=== PATIENT | male | born 1935 | race Caucasian/White ===

== ENCOUNTER 2020-03-20 03:58 | Inpatient (IN) ==
[2020-03-20] MEDS ORDERED: *HR* FentaNYL (PF) 100 MCG/2 ML VIAL IVP ONE (04:09)
[2020-03-20 04:54] LABS: Basophils % 0.5 %; Eosinophils # 0.2 K/mcL (0.0-0.6); Eosinophils % 1.9 %; Hematocrit 43.2 % (37.5-50.1); Immature Granulocytes % 0.5 % (0-4); Lymphocytes # 1.3 K/mcL (0.6-4.6); Lymphocytes % 15.1 %; Mean Corpuscular HGB Conc 32.4 g/dL (31.6-35.5); Mean Corpuscular Hemoglobin 29.4 pg (28.0-33.3); Mean Corpuscular Volume 90.6 fL (83.0-100.0); Mean Platelet Volume 9.1 fL (9.4-12.4); Monocytes # 0.5 K/mcL (0.0-1.3); Monocytes % 6.5 %; Neutrophils # 6.3 K/mcL (1.6-8.9); Platelet Count 187 K/mcL (140-400); Red Blood Count 4.77 M/mcL (4.19-5.50); Red Cell Distribution Width 13.5 % (11.5-14.5); Segmented Neutrophils % 75.5 %; White Blood Count 8.4 K/mcL (4.3-11.1)
[2020-03-20 05:09] LABS: BUN/Creatinine Ratio 27 (6-26); Blood Urea Nitrogen 26 mg/dL (8-23); Calcium 9.4 mg/dL (8.6-10.3); Carbon Dioxide 28 mEq/L (23-29); Chloride 103 mEq/L (98-107); Creatine Kinase 199 Units/L (30-223); Glucose 128 mg/dL (70-105); Osmolality,Calculated 294 (280-300); Potassium 3.9 mEq/L (3.5-5.1); Sodium 139 mEq/L (136-145); eGFR For African Americans > 60 (> 60); eGFR For Non-African Americans > 60 (> 60)
[2020-03-20] MEDS ORDERED: Morphine Sulfate 2 MG/ML SYRINGE IVP ONE ×3 (05:30→09:15)
[2020-03-20] MEDS ORDERED: Acetaminophen 325 MG TABLET PO PRN (05:51)
[2020-03-20] MEDS ORDERED: Naloxone 0.4 MG/ML INJ IVP PRN (05:51)
[2020-03-20] MEDS ORDERED: 0.9 % Sodium Chloride 1,000 ML IVC SCH (06:00)
[2020-03-20 06:01] LABS: INR 1.1; Prothrombin Time 12.2 Seconds (9.4-12.1)
[2020-03-20] MEDS: Artificial Tears SOLN 15 ML BOTTLE BOTH EYES SCH ×3 (13:00→20:52)
[2020-03-20] MEDS: amLODIPine 5 MG TABLET PO SCH (13:00)
[2020-03-20] MEDS: risperiDONE 0.25 MG TABLET PO SCH (18:11)
[2020-03-20] MEDS: Mirtazapine 15 MG TABLET PO SCH (20:52)
[2020-03-20] MEDS ORDERED: Acetaminophen IV 1,000 MG/100 ML BAG IVPB ONE (22:51)
[2020-03-21] MEDS: Artificial Tears SOLN 15 ML BOTTLE BOTH EYES SCH ×4 (07:53→21:58)
[2020-03-21] MEDS: amLODIPine 5 MG TABLET PO SCH (13:11)
[2020-03-21] MEDS: risperiDONE 0.25 MG TABLET PO SCH ×2 (13:11→16:38)
[2020-03-21] MEDS: Mirtazapine 15 MG TABLET PO SCH (21:58)
[2020-03-22] MEDS ORDERED: *HR* Etomidate 20 MG/10 ML AMPUL IVP ONE (02:34)
[2020-03-22] MEDS ORDERED: *HR* Midazolam HCl 5 MG/5 ML VIAL IVP ONE (02:34)
[2020-03-22 05:34] LABS: ABG Base Excess 0 mEq/L (-2 to 3); ABG HCO3 29 mEq/L (21-27); ABG Oxygen Saturation 84 % (95-98); ABG PCO2 63 mmHg (35-45); ABG PH 7.27 pH Units (7.32-7.45); ABG PO2 57 mmHg (85-104); ABG TCO2 31 mEq/L (20-26)
[2020-03-22] MEDS ORDERED: 0.9 % Sodium Chloride 1,000 ML ONE (05:46)
[2020-03-22 06:08] LABS: Basophils # 0.1 K/mcL (0.0-0.2); Basophils % 0.4 %; Eosinophils # 0.1 K/mcL (0.0-0.6); Eosinophils % 0.6 %; Hematocrit 47.4 % (37.5-50.1); Hemoglobin 15.1 g/dL (12.9-16.9); Immature Granulocytes % 0.5 % (0-4); Lymphocytes # 1.1 K/mcL (0.6-4.6); Lymphocytes % 8.5 %; Mean Corpuscular HGB Conc 31.9 g/dL (31.6-35.5); Mean Corpuscular Hemoglobin 29.1 pg (28.0-33.3); Mean Corpuscular Volume 91.3 fL (83.0-100.0); Mean Platelet Volume 9.1 fL (9.4-12.4); Neutrophils # 10.2 K/mcL (1.6-8.9); Platelet Count 178 K/mcL (140-400); Red Blood Count 5.19 M/mcL (4.19-5.50); Red Cell Distribution Width 13.8 % (11.5-14.5); White Blood Count 12.4 K/mcL (4.3-11.1)
[2020-03-22 06:19] LABS: Activated Partial Thrombo Time 30.2 Seconds (26.0-36.0); INR 1.3; Prothrombin Time 14.4 Seconds (9.4-12.1)
[2020-03-22 06:28] LABS: Alanine Aminotransferase 18 Units/L (7-52); Albumin 3.5 g/dL (3.5-5.7); Albumin/Globulin Ratio 1.1 (1.1-2.2); Alkaline Phosphatase 86 Units/L (34-104); Aspartate Amino Transferase 35 Units/L (13-39); BUN/Creatinine Ratio 26 (6-26); Bilirubin,Total 1.2 mg/dL (0.3-1.0); Blood Urea Nitrogen 27 mg/dL (8-23); Calcium 9.5 mg/dL (8.6-10.3); Carbon Dioxide 25 mEq/L (23-29); Chloride 105 mEq/L (98-107); Globulin 3.3 g/dL (2.4-3.5); Glucose 152 mg/dL (70-105); Magnesium 2.2 mg/dL (1.6-2.6); Osmolality,Calculated 298 (280-300); Phosphorous 4.4 mg/dL (2.7-4.5); Potassium 4.1 mEq/L (3.5-5.1); Sodium 140 mEq/L (136-145); Total Protein 6.8 g/dL (6.4-8.9); eGFR For African Americans > 60 (> 60); eGFR For Non-African Americans > 60 (> 60)
[2020-03-22] MEDS ORDERED: Perflutren Lipid Microsphere 1.3 ML in 0.9 % Sodium Chloride 8.7 ML IVP ONE (08:42)
[2020-03-22] MEDS: risperiDONE 0.25 MG TABLET PO SCH ×2 (09:04→18:11)
[2020-03-22] MEDS: amLODIPine 5 MG TABLET PO SCH (09:04)
[2020-03-22] MEDS: Artificial Tears SOLN 15 ML BOTTLE BOTH EYES SCH ×4 (09:27→20:47)
[2020-03-22] MEDS ORDERED: Ipratropium/Albuterol Neb 3 ML IH PRN ×2 (09:38→22:21)
[2020-03-22] MEDS ORDERED: Vancomycin 1,250 MG/262.5 ML IV.SOLN IVPB SCH (10:00)
[2020-03-22] MEDS ORDERED: Vancomycin 1,250 MG/262.5 ML IV.SOLN IVPB ONE (10:00)
[2020-03-22 10:25] LABS: ABG Base Excess 2 mEq/L (-2 to 3); ABG HCO3 29 mEq/L (21-27); ABG Oxygen Saturation 96 % (95-98); ABG PCO2 48 mmHg (35-45); ABG PH 7.38 pH Units (7.32-7.45); ABG PO2 81 mmHg (85-104); ABG TCO2 30 mEq/L (20-26)
[2020-03-22 10:41] LABS: Bilirubin,Urine Negative (Negative); Blood,Urine Large (Negative); Clarity,Urine Ex.Turbid (Clear); Color,Urine Light-Orange (Yellow); Glucose,Urine (UA) 30 mg/dL (Normal); Ketones,Urine Trace mg/dL (Negative); Leukocyte Esterase,Urine Moderate (Negative); Nitrite,Urine Negative (Negative); PH,Urine 6.5 pH Units (5.0-8.0); Protein,Urine >=600 mg/dL (Neg-Trace); Urobilinogen,Urine Normal (Normal)
[2020-03-22] MEDS: Piperacillin/Tazobactam 3.375 GM in 0.9 % Sodium Chloride Mini Bag 100 ML IVPB SCH ×2 (10:50→16:29)
[2020-03-22 10:51] LABS: RBC,Urine TNTC per hpf (0-3)
[2020-03-22 10:52] LABS: Bacteria,Urine Few per hpf (None-Few); Squamous Epithelial Cell,Urine Few per hpf (None-Few)
[2020-03-22] MEDS ORDERED: Haloperidol Lactate 5 MG/ML VIAL IM ONE ×2 (11:27→16:01)
[2020-03-22] MEDS ORDERED: Total Joint Mixture (50 ml) INTRAART ONE (16:00)
[2020-03-22] MEDS ORDERED: 0.9 % Sodium Chloride 500 ML ONE ×2 (17:03→21:43)
[2020-03-22] MEDS ORDERED: Ethanol\\Acetic Acid\\Na Ace\\Ben 1,000 ML IRRIG.SOLN IR ONE (17:39)
[2020-03-22] MEDS ORDERED: Albumin 25% 25gram/100mL 25 GM/100 ML IV.SOLN IVPB ONE (17:39)
[2020-03-22] MEDS ORDERED: Vancomycin 1,000 MG VIAL ONE (17:39)
[2020-03-22] MEDS ORDERED: *HR* Rocuronium Bromide 50 MG/5 ML VIAL ONE (17:50)
[2020-03-22] MEDS ORDERED: *HR* Propofol 200 MG/20 ML VIAL IVP ONE (17:52)
[2020-03-22] MEDS ORDERED: *HR* Midazolam HCl 2 MG/2 ML VIAL ONE (17:52)
[2020-03-22] MEDS ORDERED: *HR* Norepinephrine 4 MG/4 ML VIAL IVC ONE (17:54)
[2020-03-22] MEDS ORDERED: D5% in Water 250 ML ONE (17:55)
[2020-03-22] MEDS ORDERED: Artificial Tears SOLN 15 ML BOTTLE BOTH EYES PRN ×2 (18:26→22:21)
[2020-03-22] MEDS ORDERED: FentaNYL (PF) 1,000 MCG/100 ML IV.SOLN IVC SCH ×2 (18:30→22:21)
[2020-03-22] MEDS ORDERED: Dexmedetomidine HCl 400 MCG/100 ML MLS IVC SCH (18:30)
[2020-03-22] MEDS ORDERED: *HR* FentaNYL (PF) 100 MCG/2 ML VIAL ONE (18:33)
[2020-03-22] MEDS ORDERED: Tranexamic Acid 1,000 MG/10 ML VIAL ONE ×2 (18:39)
[2020-03-22] MEDS ORDERED: Artificial Tears SOLN 15 ML BOTTLE BOTH EYES SCH (20:00)
[2020-03-22] MEDS ORDERED: Chlorhexidine Rinse 15 ML MOUTHWASH MM SCH (21:00)
[2020-03-22] MEDS: Mirtazapine 15 MG TABLET PO SCH (21:14)
[2020-03-22] MEDS ORDERED: 0.9 % Sodium Chloride 500 ML IVC ONE (21:35)
[2020-03-22] MEDS ORDERED: *HR* Promethazine 25 MG/ML VIAL IVP PRN (22:21)
[2020-03-22] MEDS ORDERED: Ondansetron 4 MG/2 ML VIAL IVP PRN (22:21)
[2020-03-22] MEDS ORDERED: Naloxone 0.4 MG/ML INJ IVP PRN ×2 (22:21)
[2020-03-22] MEDS ORDERED: Sennosides 8.6 MG TABLET PO PRN (22:21)
[2020-03-22] MEDS ORDERED: MOM Conc 10 ML UD.LIQ PO PRN (22:21)
[2020-03-22] MEDS ORDERED: Ropivacaine/PF 0.5% 24.62 ML, EPINEPHrine 0.25 MG, cloNIDine 0.04 MG, Ketorolac 15 MG, ... INTRAART ONE (22:21)
[2020-03-22] MEDS: Dexmedetomidine HCl 400 MCG/100 ML MLS IVC SCH (22:38)
[2020-03-22] MEDS: Ringers Solution, Lactated 1,000 ML IVC SCH (22:41)
[2020-03-22 22:48] LABS: ABG Base Excess 2 mEq/L (-2 to 3); ABG HCO3 28 mEq/L (21-27); ABG Oxygen Saturation 99 % (95-98); ABG PCO2 49 mmHg (35-45); ABG PH 7.36 pH Units (7.32-7.45); ABG PO2 157 mmHg (85-104); ABG TCO2 29 mEq/L (20-26); Blood Gas Modality ASSIST CONTROL; Blood Gas VT 420 cc
[2020-03-23] MEDS ORDERED: Aminoglycoside Consult 1 EACH MC ONE (02:34)
[2020-03-23] MEDS: Piperacillin/Tazobactam 3.375 GM in 0.9 % Sodium Chloride Mini Bag 100 ML IVPB SCH ×4 (03:10→23:53)
[2020-03-23] MEDS: Artificial Tears SOLN 15 ML BOTTLE BOTH EYES SCH ×6 (03:19→19:51)
[2020-03-23 05:22] LABS: ABG Base Excess 3 mEq/L (-2 to 3); ABG HCO3 29 mEq/L (21-27); ABG Oxygen Saturation 98 % (95-98); ABG PCO2 47 mmHg (35-45); ABG PH 7.39 pH Units (7.32-7.45); ABG PO2 113 mmHg (85-104); ABG TCO2 30 mEq/L (20-26); Blood Gas Modality ASSIST CONTROL; Blood Gas VT 420 cc
[2020-03-23 05:36] LABS: Basophils % 0.3 %; Eosinophils % 0.4 %; Hematocrit 39.7 % (37.5-50.1); Hemoglobin 12.6 g/dL (12.9-16.9); Immature Granulocytes % 0.4 % (0-4); Immature Platelets 3.2 % (1.1-6.1); Lymphocytes # 1.2 K/mcL (0.6-4.6); Lymphocytes % 10.8 %; Mean Corpuscular HGB Conc 31.7 g/dL (31.6-35.5); Mean Corpuscular Hemoglobin 29.4 pg (28.0-33.3); Mean Corpuscular Volume 92.8 fL (83.0-100.0); Mean Platelet Volume 9.9 fL (9.4-12.4); Monocytes % 8.7 %; Neutrophils # 8.9 K/mcL (1.6-8.9); Platelet Count 132 K/mcL (140-400); Red Blood Count 4.28 M/mcL (4.19-5.50); Red Cell Distribution Width 14.1 % (11.5-14.5); Segmented Neutrophils % 79.4 %; White Blood Count 11.1 K/mcL (4.3-11.1)
[2020-03-23 05:42] LABS: BUN/Creatinine Ratio 41 (6-26); Blood Urea Nitrogen 49 mg/dL (8-23); Calcium 8.8 mg/dL (8.6-10.3); Carbon Dioxide 23 mEq/L (23-29); Chloride 111 mEq/L (98-107); Glucose 121 mg/dL (70-105); Osmolality,Calculated 310 (280-300); Potassium 4.8 mEq/L (3.5-5.1); Sodium 143 mEq/L (136-145); eGFR For African Americans > 60 (> 60); eGFR For Non-African Americans 58 (> 60)
[2020-03-23] MEDS: risperiDONE 0.25 MG TABLET PO SCH ×2 (08:37→08:45)
[2020-03-23] MEDS: Multivit/Ca/Min/Fe/FA 1 TAB TABLET PO SCH ×2 (08:37→08:45)
[2020-03-23] MEDS: Ascorbic Acid 500 MG TABLET PO SCH ×3 (08:37→16:51)
[2020-03-23] MEDS: amLODIPine 5 MG TABLET PO SCH ×2 (08:37→08:44)
[2020-03-23] MEDS: Chlorhexidine Rinse 15 ML MOUTHWASH MM SCH ×2 (08:38→19:54)
[2020-03-23] MEDS ORDERED: Furosemide 40 MG/4 ML VIAL IVP ONE (08:41)
[2020-03-23] MEDS ORDERED: Vancomycin 1 EACH in 0.9 % Sodium Chloride 250 ML IVPB PRN ×2 (09:00→10:00)
[2020-03-23] MEDS ORDERED: Pantoprazole 40 MG VIAL IVP SCH ×2 (09:00)
[2020-03-23] MEDS ORDERED: Artificial Tears SOLN 15 ML BOTTLE BOTH EYES SCH (09:00)
[2020-03-23] MEDS: Dexmedetomidine HCl 400 MCG/100 ML MLS IVC SCH ×2 (09:07→20:51)
[2020-03-23] MEDS: Ringers Solution, Lactated 1,000 ML IVC SCH ×2 (12:24→23:51)
[2020-03-23] MEDS ORDERED: Vancomycin 1,250 MG/262.5 ML IV.SOLN IVPB SCH (13:00)
[2020-03-23] MEDS ORDERED: risperiDONE 0.25 MG TABLET PO SCH (18:00)
[2020-03-23] MEDS ORDERED: Mirtazapine 15 MG TABLET PO SCH (21:00)
[2020-03-23] MEDS ORDERED: *HR* Heparin 5,000 UNIT/ML VIAL SQ SCH (22:00)
[2020-03-23] MEDS ORDERED: *HR* FentaNYL (PF) 100 MCG/2 ML VIAL IVP PRN (23:32)
[2020-03-24 01:25] VITALS: BP 147/50
== END 2020-03-24 02:35 | disposition expired | DRG 469 ==
LOC: SUATTDRO → 3NENU 03:58 → EMEROOARM 03:58 → 3NENU 08:15 → ICNU 03-22 06:46
PROVIDERS: ADMIT Internal Medicine; ATTEND Internal Medicine